=== PATIENT | female | born 1950 | race Caucasian/White ===

== ENCOUNTER 2018-09-02 10:32 | Outpatient (CLI) | payer BC, SELFPAY ==
--- NOTE | 2018-09-02 10:27 | DI.RAD_ITS ---
SYMPTOMS/DIAGNOSIS: EVAL RT WRIST PAIN RIGHT WRIST: The bony structures and joint spaces appear intact. There is no evidence of a fracture or dislocation.
== END 2018-09-02 10:52 ==
PROVIDERS: Visit Provider Student in an Organized Health Care Education/Training Program
DX: M25.531 Pain in right wrist (principal)
CPT/HCPCS: 73110

== ENCOUNTER 2018-09-15 11:50 | Day surgery (SDC) | payer BC, SELFPAY ==
--- NOTE | 2018-09-15 11:51 | W.PREOPHP ---
Documented by User: PALLAVI Katz 09/15/18 12:48 Date of service: 09/15/18 Assessment and Plan (1) Right carpal tunnel syndrome: Current visit: No Status: Acute (2) Cubital tunnel syndrome on right: Current visit: No Status: Acute Right ECTR with Right ulnar nerve decompression with possible transposition. Details of surgery were discussed with patient including risks and pertinent anatomy. All questions were answered. History of Present Illness Chief Complaint: Right hand pain and numbness Narrative: Anais is a 67 year old female who comes in today for a RIGHT ECTR and RIGHT ulnar nerve decompression at the elbow because of right hand pain and numbness. She also is experiencing weakness in the right hand. This is all aggravated by activities including driving, administering insulin, reading and especially at night. She did try nighttime bracing which did not improve her symptoms. She had EMG studies which revield moderate CTS on the right wrist as well as moderate ulnar endrapment at the elbow. Because she has failed conservative treatment, she elects to proceed with R ECTR and RIGHT ulnar nerve decompression with possible transposition. Pertinent Surgical Information Patient denies history of CVA, [place], angina, asthma, COPD, renal or liver disorders, hepatitis, bleeding disorders, immune or thyroid disorders. No complications from anesthesia. Review of Systems Constitutional Denies fever(s) ENT Denies dizziness and Denies sore throat Cardiovascular Denies chest pain, Denies palpitations and Denies dyspnea Respiratory Denies cough and Denies dyspnea Gastrointestinal Denies abdominal pain, Denies melena, Denies hematochezia, Denies diarrhea, Denies nausea and Denies vomiting Genitourinary Denies hematuria and Denies dysuria Neurologic Denies dizziness Endocrine Denies palpitations [facility] Medical History Allergic rhinitis (Acute) History of broken finger (Acute) Pain, joint, shoulder, right (Acute) Retinal hemorrhage, bilateral (Acute) Diabetes mellitus (Chronic) Gout (Chronic) High cholesterol (Chronic) Hypertension (Chronic) Surgical History Closed fracture of phalanx of left little finger (Acute) Social History Smoking/Tobacco Use Status: Former Tobacco Use Quit Date: 05/12/89 Tobacco: How many years used: 15 Alcohol Intake: current Alcohol Intake frequency: a few times a week Alcohol type: wine Drug use: Never Substance use type: does not use Details: alcohol: t-1, wine, one glass Do you feel safe at home: Yes Do you feel safe in your relationship?: Yes Meds Home Medications Medication Instructions Recorded Confirmed Type amiloride 5 mg PO DAILY 09/15/18 09/15/18 History atenolol 50 mg PO DAILY 09/15/18 09/15/18 History cetirizine [Zyrtec] 10 mg PO HS 09/15/18 09/15/18 History fenofibrate 54 mg PO HS 09/15/18 09/15/18 History insulin aspart U-100 [Novolog 0 unit SUBCUT QACBREAK 09/15/18 09/15/18 History Flexpen U-100 Insulin] insulin glargine [Lantus U-100 25 unit SUBCUT QHS 09/15/18 09/15/18 History Insulin] liraglutide [Victoza 3-Jame] 1.2 mg SUBCUT HS 09/15/18 09/15/18 History lisinopril 40 mg PO HS 09/15/18 09/15/18 History metformin 500 mg PO BID 09/15/18 09/15/18 History simvastatin 20 mg PO QHS 09/15/18 09/15/18 History sitagliptin [Januvia] 100 mg PO DAILY 09/15/18 09/15/18 History Allergies Allergy/AdvReac Type Severity Reaction Status Date / Time No Known Allergies Allergy Verified 09/15/18 12:15 Exam HENMI Head: normocephalic and atraumatic General nose exam: no nasal discharge Other: Eyes Conjunctivae: conjunctivae normal Sclera: sclerae normal Resp Effort & Inspection: normal respiratory effort Auscultation: clear to auscultation bilaterally and no wheezes Cardio Rate: regular rate Rhythm: regular rhythm Heart Sounds: S1 normal, S2 normal and no murmurs GI Palpation: soft, no hepatosplenomegaly and nontender Auscultation: normal bowel sounds Documented by User: Raj London MD 09/15/18 14:41 PFSH Medical History Allergic rhinitis (Acute) History of broken finger (Acute) Pain, joint, shoulder, right (Acute) Retinal hemorrhage, bilateral (Acute) Diabetes mellitus (Chronic) Gout (Chronic) High cholesterol (Chronic) Hypertension (Chronic) Surgical History Closed fracture of phalanx of left little finger (Acute) Social History Smoking/Tobacco Use Status: Former Tobacco Use Quit Date: 05/12/89 Tobacco: How many years used: 15 Alcohol Intake: current Alcohol Intake frequency: a few times a week Alcohol type: wine Drug use: Never Substance use type: does not use Details: alcohol: t-1, wine, one glass Do you feel safe at home: Yes Do you feel safe in your relationship?: Yes Meds Home Medications Medication Instructions Recorded Confirmed Type amiloride 5 mg PO DAILY 09/15/18 09/15/18 History atenolol 50 mg PO DAILY 09/15/18 09/15/18 History cetirizine [Zyrtec] 10 mg PO HS 09/15/18 09/15/18 History fenofibrate 54 mg PO HS 09/15/18 09/15/18 History insulin aspart U-100 [Novolog 0 unit SUBCUT QACBREAK 09/15/18 09/15/18 History Flexpen U-100 Insulin] insulin glargine [Lantus U-100 25 unit SUBCUT QHS 09/15/18 09/15/18 History Insulin] liraglutide [Victoza 3-Jame] 1.2 mg SUBCUT HS 09/15/18 09/15/18 History lisinopril 40 mg PO HS 09/15/18 09/15/18 History metformin 500 mg PO BID 09/15/18 09/15/18 History simvastatin 20 mg PO QHS 09/15/18 09/15/18 History sitagliptin [Januvia] 100 mg PO DAILY 09/15/18 09/15/18 History Allergies Allergy/AdvReac Type Severity Reaction Status Date / Time No Known Allergies Allergy Verified 09/15/18 12:15
--- NOTE | 2018-09-15 11:56 | HPE_ITS ---
Documented by User: PALLAVI Katz 09/15/18 12:48 Date of service: 09/15/18 Assessment and Plan (1) Right carpal tunnel syndrome: Current visit: No Status: Acute (2) Cubital tunnel syndrome on right: Current visit: No Status: Acute Right ECTR with Right ulnar nerve decompression with possible transposition. Details of surgery were discussed with patient including risks and pertinent anatomy. All questions were answered. History of Present Illness Chief Complaint: Right hand pain and numbness Narrative: Anais is a 67 year old female who comes in today for a RIGHT ECTR and RIGHT ulnar nerve decompression at the elbow because of right hand pain and numbness. She also is experiencing weakness in the right hand. This is all aggravated by activities including driving, administering insulin, reading and especially at night. She did try nighttime bracing which did not improve her symptoms. She had EMG studies which revield moderate CTS on the right wrist as well as moderate ulnar endrapment at the elbow. Because she has failed conservative treatment, she elects to proceed with R ECTR and RIGHT ulnar nerve decompression with possible transposition. Pertinent Surgical Information Patient denies history of CVA, [place], angina, asthma, COPD, renal or liver disorders, hepatitis, bleeding disorders, immune or thyroid disorders. No complications from anesthesia. Review of Systems Constitutional Denies fever(s) ENT Denies dizziness and Denies sore throat Cardiovascular Denies chest pain, Denies palpitations and Denies dyspnea Respiratory Denies cough and Denies dyspnea Gastrointestinal Denies abdominal pain, Denies melena, Denies hematochezia, Denies diarrhea, Denies nausea and Denies vomiting Genitourinary Denies hematuria and Denies dysuria Neurologic Denies dizziness Endocrine Denies palpitations [facility] Medical History Allergic rhinitis (Acute) History of broken finger (Acute) Pain, joint, shoulder, right (Acute) Retinal hemorrhage, bilateral (Acute) Diabetes mellitus (Chronic) Gout (Chronic) High cholesterol (Chronic) Hypertension (Chronic) Surgical History Closed fracture of phalanx of left little finger (Acute) Social History Smoking/Tobacco Use Status: Former Tobacco Use Quit Date: 05/12/89 Tobacco: How many years used: 15 Alcohol Intake: current Alcohol Intake frequency: a few times a week Alcohol type: wine Drug use: Never Substance use type: does not use Details: alcohol: t-1, wine, one glass Do you feel safe at home: Yes Do you feel safe in your relationship?: Yes Meds Home Medications Medication Instructions Recorded Confirmed Type amiloride 5 mg PO DAILY 09/15/18 09/15/18 History atenolol 50 mg PO DAILY 09/15/18 09/15/18 History cetirizine [Zyrtec] 10 mg PO HS 09/15/18 09/15/18 History fenofibrate 54 mg PO HS 09/15/18 09/15/18 History insulin aspart U-100 [Novolog 0 unit SUBCUT QACBREAK 09/15/18 09/15/18 History Flexpen U-100 Insulin] insulin glargine [Lantus U-100 25 unit SUBCUT QHS 09/15/18 09/15/18 History Insulin] liraglutide [Victoza 3-Jame] 1.2 mg SUBCUT HS 09/15/18 09/15/18 History lisinopril 40 mg PO HS 09/15/18 09/15/18 History metformin 500 mg PO BID 09/15/18 09/15/18 History simvastatin 20 mg PO QHS 09/15/18 09/15/18 History sitagliptin [Januvia] 100 mg PO DAILY 09/15/18 09/15/18 History Allergies Allergy/AdvReac Type Severity Reaction Status Date / Time No Known Allergies Allergy Verified 09/15/18 12:15 Exam HENTX Head: normocephalic and atraumatic General nose exam: no nasal discharge Other: Eyes Conjunctivae: conjunctivae normal Sclera: sclerae normal Resp Effort & Inspection: normal respiratory effort Auscultation: clear to auscultation bilaterally and no wheezes Cardio Rate: regular rate Rhythm: regular rhythm Heart Sounds: S1 normal, S2 normal and no murmurs GI Palpation: soft, no hepatosplenomegaly and nontender Auscultation: normal bowel sounds Documented by User: Raj London MD 09/15/18 14:41 PFSH Medical History Allergic rhinitis (Acute) History of broken finger (Acute) Pain, joint, shoulder, right (Acute) Retinal hemorrhage, bilateral (Acute) Diabetes mellitus (Chronic) Gout (Chronic) High cholesterol (Chronic) Hypertension (Chronic) Surgical History Closed fracture of phalanx of left little finger (Acute) Social History Smoking/Tobacco Use Status: Former Tobacco Use Quit Date: 05/12/89 Tobacco: How many years used: 15 Alcohol Intake: current Alcohol Intake frequency: a few times a week Alcohol type: wine Drug use: Never Substance use type: does not use Details: alcohol: t-1, wine, one glass Do you feel safe at home: Yes Do you feel safe in your relationship?: Yes Meds Home Medications Medication Instructions Recorded Confirmed Type amiloride 5 mg PO DAILY 09/15/18 09/15/18 History atenolol 50 mg PO DAILY 09/15/18 09/15/18 History cetirizine [Zyrtec] 10 mg PO HS 09/15/18 09/15/18 History fenofibrate 54 mg PO HS 09/15/18 09/15/18 History insulin aspart U-100 [Novolog 0 unit SUBCUT QACBREAK 09/15/18 09/15/18 History Flexpen U-100 Insulin] insulin glargine [Lantus U-100 25 unit SUBCUT QHS 09/15/18 09/15/18 History Insulin] liraglutide [Victoza 3-Jame] 1.2 mg SUBCUT HS 09/15/18 09/15/18 History lisinopril 40 mg PO HS 09/15/18 09/15/18 History metformin 500 mg PO BID 09/15/18 09/15/18 History simvastatin 20 mg PO QHS 09/15/18 09/15/18 History sitagliptin [Januvia] 100 mg PO DAILY 09/15/18 09/15/18 History Allergies Allergy/AdvReac Type Severity Reaction Status Date / Time No Known Allergies Allergy Verified 09/15/18 12:15
[2018-09-15 12:21] VITALS: BP 154/72; PULSE 61; RESP 16; TEMP 35.6; O2SAT 99
[2018-09-15] MEDS: Lactated Ringers 1,000 ML 80 ML IV (12:40)
[2018-09-15] MEDS: ceFAZolin 2 GM/50 ML BAG IVPB (13:32)
[2018-09-15] MEDS: Lidocaine 1% Multi-Dose 50 ML VIAL (13:39)
--- NOTE | 2018-09-15 14:43 | PDOC.DSDIS_ITS ---
Discharge Plan Disposition Patient Disposition: HOME Condition: Good Discharge Details Reason For Visit: R cubital and carpal tunnel Attending Provider: Raj London Primary Care Provider: Jamil Ball [place] Meds and New Rx's Prescriptions: New acetaminophen 500 mg tablet 500 mg PO Q6H PRN (Reason: pain) Qty: 60 RF: 3 hydrocodone-acetaminophen 5-325 mg tablet 1 tab PO Q4H PRN (Reason: pain) Qty: 14 RF: 0 ibuprofen 600 mg tablet 600 mg PO TID PRNQty: 90 RF: 3 Continued metformin 500 mg Tablet 500 mg PO BID RF: 0 Lantus U-100 Insulin 100 unit/mL Solution 25 unit SUBCUT QHS RF: 0 amiloride 5 mg Tablet 5 mg PO DAILY RF: 0 simvastatin 20 mg Tablet 20 mg PO QHS RF: 0 lisinopril 40 mg Tablet 40 mg PO HS RF: 0 atenolol 50 mg Tablet 50 mg PO DAILY RF: 0 Novolog Flexpen U-100 Insulin 100 unit/mL Insulin Pen SUBCUT QACBREAK RF: 0 Januvia 100 mg Tablet 100 mg PO DAILY RF: 0 fenofibrate 54 mg Tablet 54 mg PO HS RF: 0 Victoza 3-Jame 0.6 mg/0.1 mL (18 mg/3 mL) Pen Injector 1.2 mg SUBCUT HS RF: 0 Zyrtec 10 mg Capsule 10 mg PO HS RF: 0 Discharge Instructions Additional Instructions: Activity: You should stay in the sling for the first 1-2 weeks. You may come out of the sling for gentle motion and hygiene but should largely remain in the sling to allow the incision site to heal. Gentle motion of the elbow, hand, wrist, and fingers is okay and encouraged after the first few days, but no repetitive activites nor heavy lifting. You may apply ice. Medications: - You should take Tylenol and Ibuprofen around the clock. - You have been prescribed Hydrocodone for breakthrough pain. Dressings: - The initial surgical dressing should stay in place for 3 days. It may then be removed and kept clean and dry. You should cover with a light gauze dressing at the elbow and a bandaid at the wrist. - You may shower after 3 days and get the wound wet. Follow-up: 10 days Referrals: Raj London MD [ [facility] STAFF PHYSICIAN] - Equipment/Supplies: Sling Activity:: Elevate Remove Dressings/Wound Care:: 72 hours Shower/Bathe:: 72 hours Diet:: Carb Counting Discharge Orders Discharge Orders: Discharge Order (Routine); Ordered 09/15/18 Ordered By: Raj London DS: Diagnosis Discharge Diagnosis (1) Cubital tunnel syndrome on right: Status: Acute (2) Right carpal tunnel syndrome: Status: Acute
[2018-09-15 15:20] VITALS: BP 129/66; PULSE 51; RESP 16; TEMP 36.6; O2SAT 95
[2018-09-15] MEDS: Acetaminophen 325 MG TAB 650 MG PO (15:23)
--- NOTE | 2018-09-16 07:49 | ROE_ITS ---
Date of service: 09/15/18 Time of Service: 14:43 Operative Note DATE OF PROCEDURE: 09/15/18 PRE-OP DIAGNOSIS: Right Carpal Tunnel Syndrome and right cubital tunnel syndrome POST-OP DIAGNOSIS: same PROCEDURE: Right Endoscopic Carpal Tunnel Release and right cubital tunnel release with anterior subcutaneous ulnar nerve transposition SURGEON: Raj London ASSISTING SURGEON: Li Walker ANESTHESIA: MAC ESTIMATED BLOOD LOSS: 0 PATHOLOGY: none sent TOURNIQUET TIME: 40 COMPLICATIONS: None Patient was transported to: same day Patient's condition: stable Indications: I have seen Anais in clinic for symptoms of carpal and cubital tunnel syndrome. The numbness, tingling, and pain limited function. Clinical exam findings [with nerve conduction tests ]confirmed the diagnosis of both. Nonoperative measures such as bracing, time, activity modifications had been tried but disability and pain persisted. I discussed carpal tunnel and cubital tunnel release with the patient. I reviewed the risks of the procedure to include, but not limited to, bleeding, infection, pain, stiffness, incomplete release, damage to nerves or vessels, persistent numbness, recurrence, nerve subluxation. Despite these risks, the patient elected to proceed. Findings: There was tightened carpal tunnel. This was dilated and released successfully with the endoscopic with increased space within the tunnel. The antebrachial fascia was released proximally freeing the median nerve at the wrist. The ulnar nerve was identified at the level of the elbow and was noted to be tight through Almeida's fascia as well at the arcade of Catherine. After releasing the nerve was noted to purchase over the edge of the medial condyle and therefore it was transposed anteriorly. Procedure Description: Anais was greeted in the preoperative holding area where the correct side was identified and marked. The consent was reviewed with the patient and signed. The history and physical was updated. All questions were answered. Anais was taken back to the operating room. The patient was placed into the supine position on the operating room table with the right arm on an arm board. A nonsterile tourniquet was placed high onto the arm, into the axilla. All bony prominences were well padded. Prophylactic antibiotics in the form of cefazolin were administered. The right arm was then prepped with Chloraprep and draped in a standard fashion with stockinette and extremity drape. A timeout to confirm correct identity, side and site, procedure, allergies, anesthesia, and medical concerns was performed. The surgical site was marked in the volar wrist creases in line with the radial border of the fourth ray. This area was anesthetized with approximately 6cc of 1% Lidocaine. The limb was then exsanguinated with an Esmarch. The skin was incised with a 15 blade, approximately 1cm. The skin only was cut and the deeper tissue was dissected bluntly with a tenotomy scissor, avoiding passing nerve and venous structures. The fascia was penetrated and opened bluntly. A two-prong skin hook was placed under this proximal fascial edge. A series of hamate finders were used to identify and dilate the carpal tunnel. Synovial elevator was used to free synovial attachments to the underside of the transverse carpal ligament. My thumb was kept in the palm to ray the distal extent of the carpal tunnel and correctly position the hand. The [employer] endoscope was inserted without difficulty and without resistance. Excellent visualization showed horizontally running fibers of the transverse carpal ligament (TCL). The distal extent of the TCL was visualized and the end of the scope palpated with the thumb. The blade was elevated and withdrawn from distal to proximal. The TCL was split into two flaps. The endoscope was reinserted to confirm complete release and any remnant ligament was incised. The scope was withdrawn and the proximal aspect of the carpal tunnel was grossly inspected and appeared release with the median nerve visible. The antebrachial fascia at the level of the wrist was then freed from the overlying skin and then the underlying median nerve with blunt dissection. This was transected longitudinally for about 3cm proximal to the wrist incision. The wound was then irrigated with easy flow of irrigant distally and proximally. The incision was closed with a single 4-0 Nylon suture. The wound was dressed with Xeroform, Gauze, Kerlix. Attention was then turned to the cubital tunnel surgery. A curvilinear incision was made just posterior to the medial condyle. The medial epicondyle was marked on the skin. The skin was incised sharply. Deep dissection was carried out using tenotomy scissors and blunt dissection. There was one small branching nerve of the medial antebrachial cutaneous nerve which was protected. The ulnar nerve was identified just proximal to the medial condyle. It was unroofed and was noted to be tight through the cubital tunnel and Almeida's fascia. This was released all the way into the flexor carpi ulnaris muscle and the first branch of the ulnar nerve. The overlying fascia was released. Proximal release was performed and was noted to be relatively noncompressed except for the arcade of Catherine. The medial intermuscular septum was not very taut nor tight against the nerve but the arcade of Catherine prevented any movement of the nerve. This was released and the nerve is noted to be free. The elbow was then taken through range of motion where the nerve purchase on the edge of the medial epicondyle. Therefore, I decided to transpose the nerve. With a vessel loop around the ulnar nerve all adhesions were removed from the nerve. It was able to easily move anterior to the medial condyle. There is no point compression either proximal or distal. A small flap of the flexor pronator mass fascia was elevated and sutured to the deep tissues underlying the previously marked site of the medial epicondyle with a #2-0 Vicryl. The nerve is noted to be freely within this pocket anterior to the elbow. The wound was then irrigated. The deep tissues were closed with a 3-0 Vicryl. The skin was closed with a 4-0 nylon. Xeroform, gauze, and Kerlix was applied to the wound. The tourniquet was deflated with the initial dressing and held with some pressure. Blood flow returned easily to all digits with capillary refill less than 2 seconds. Sarbjit wraps were applied to both surgical sites and the patient was placed to a slingRoderick Manzo tolerated the procedure well and was returned to the Same Day Surgery area in a stable condition suffering no known complication.
== END 2018-09-15 15:56 | disposition home or self-care (01) ==
PROVIDERS: PCP Neuromusculoskeletal Medicine & OMM; Visit Provider Student in an Organized Health Care Education/Training Program
PROC: (CPT 64718; principal; 2018-09-15 13:00)
PROC: 01N54ZZ Release Median Nerve, Percutaneous Endoscopic Approach (ICD-10-PCS; CPT 29848; 2018-09-15 13:00)
DX: G56.01 Carpal tunnel syndrome, right upper limb (principal); G56.21 Lesion of ulnar nerve, right upper limb
CPT/HCPCS: 64718; 29848; NC; J0690; J2250; J3010; L3650

== ENCOUNTER 2022-11-27 10:40 | Day surgery (SDC) | payer BC, SELFPAY ==
[2022-11-27] VITALS (7 sets, daily range): BP systolic 124–189; BP diastolic 48–102; PULSE 46–57; RESP 16–23; TEMP 35.8–36.6; O2SAT 95–99; BMI 26.2
--- NOTE | 2022-11-27 07:31 | W.PM.DSUDISC ---
Date of service: 11/27/22 Time of Service: 07:34 Discharge Plan Disposition Condition: Good Condition: Good Discharge Details Reason For Visit: Left carpal and cubital tunnel syndromes Attending Provider: Raj London Primary Care Provider: Jamil Ball [place] Meds and New Rx's Prescriptions: New acetaminophen 500 mg tablet 500 mg PO Q6H PRN (Reason: pain) Qty: 60 2RF hydrocodone-acetaminophen 5-325 mg tablet 1 tab PO Q6H PRN (Reason: severe pain) Qty: 6 0RF Rx Instructions: Take one tablet up to every 6 hours as needed for severe postoperative pain ibuprofen 600 mg tablet 600 mg PO TID PRN (Reason: pain) Qty: 60 0RF Continued insulin lispro [Humalog KwikPen Insulin] 100 unit/mL insulin pen 1 sliding scale dose subcut USEASDIRECTD amiloride 5 mg Tablet 5 mg PO DAILY simvastatin 20 mg Tablet 20 mg PO QHS lisinopril 40 mg Tablet 40 mg PO HS atenolol 50 mg Tablet 50 mg PO DAILY Januvia 100 mg Tablet 100 mg PO DAILY fenofibrate 54 mg Tablet 54 mg PO HS Zyrtec 10 mg Capsule 10 mg PO HS Discontinued acetaminophen 500 mg tablet 500 mg PO Q6H PRN (Reason: pain) Qty: 60 3RF ibuprofen 600 mg tablet 600 mg PO TID PRNQty: 90 3RF Discharge Instructions Additional Instructions: Cubital Tunnel Decompression Discharge Instructions Activity: You should stay in the sling for the first 2 weeks. You may come out of the sling for gentle motion and hygiene but should largely remain in the sling to allow the incision site to heal. Gentle motion of the elbow, hand, wrist, and fingers is okay and encouraged after the first few days, but no repetitive activities nor heavy lifting. You may apply ice. Medications: - You should take Tylenol and Ibuprofen around the clock. - You have been prescribed Hydrocodone for breakthrough pain. Dressings: - The initial surgical dressing should stay in place for 3 days. It may then be removed and kept clean and dry. You should cover with a light gauze dressing. - You may shower after 3 days and get the wound wet. Follow-up: 10 days Stand Alone Forms: Surya Gramajo Tunnel Release Referrals: Raj London MD [ [facility] STAFF PHYSICIAN] - Equipment/Supplies: Sling Activity:: Activity as Tolerated Remove Dressings/Wound Care:: 72 hours Shower/Bathe:: 72 hours Diet:: As Tolerated Discharge Orders Discharge Orders: Discharge Order (Routine); Ordered 11/27/22 Ordered By: Li Walker DS: Diagnosis Discharge Diagnosis (1) Left carpal tunnel syndrome: Status: Acute (2) Cubital tunnel syndrome on left: Status: Acute
--- NOTE | 2022-11-27 09:46 | W.ANESPRE ---
General Info Date of Service Date Performed: 11/27/22 Height: 5 ft 3.5 in Weight: 68.039 kg Body Mass Index (BMI): 26.2 Surgical Procedure: Operation Date: 11/27/22 14:25 Proposed Procedure Side Surgeon p Wrist ECTR Left Raj London MD s Cubital Tunnel Decompression Left Raj London MD Meds Allergies and Home Medications Allergies Allergy/AdvReac Type Severity Reaction Status Date / Time No Known Allergies Allergy Verified 11/26/22 11:12 Home Medication Medication Instructions Recorded amiloride 5 mg tablet 5 mg PO DAILY 09/15/18 atenolol 50 mg tablet 50 mg PO DAILY 09/15/18 cetirizine 10 mg capsule (Zyrtec) 10 mg PO HS 09/15/18 fenofibrate 54 mg tablet 54 mg PO HS 09/15/18 lisinopril 40 mg tablet 40 mg PO HS 09/15/18 simvastatin 20 mg tablet 20 mg PO QHS 09/15/18 sitagliptin phosphate 100 mg 100 mg PO DAILY 09/15/18 tablet (Januvia) insulin lispro 100 unit/mL 1 sliding scale dose subcut 03/13/22 subcutaneous pen (Humalog KwikPen USEASDIRECTD (U-100) Insulin) acetaminophen 500 mg tablet 500 mg PO Q6H PRN pain #60 tabs 11/27/22 hydrocodone 5 mg-acetaminophen 325 1 tab PO Q6H PRN severe pain #6 11/27/22 mg tablet tabs ibuprofen 600 mg tablet 600 mg PO TID PRN pain #60 tabs 11/27/22 Current Visit Medications: Current Medications Generic Name Dose Route Start Last Admin Trade Name Freq PRN Reason Stop Dose Admin Acetaminophen 650 mg 11/27/22 07:30 Acetaminophen 325 Mg Tab PO 12/27/22 07:29 Q4H PRN PRN Hydrocodone Bitart/Acetaminophen 0 tab 11/27/22 07:30 Hydrocodone 5/Acetaminophen 325 Tab PO 12/27/22 07:29 Q3H PRN PRN Pain Ringer's Solution 1,000 mls @ 80 mls/hr 11/27/22 06:00 IV 12/26/22 23:59 INFUSION ANAIS Cefazolin Sodium/Dextrose 2 gm in 50 mls @ 100 mls/hr 11/27/22 06:00 Ancef Duplex IVPB 12/26/22 23:59 PREOP ANAIS IV Miscellaneous Supplies 1 each 11/27/22 06:00 Iv Access IV 12/26/22 23:59 DIRECTED ANAIS Sodium Chloride 0 ml 11/27/22 06:00 Normal Saline Flush 10 Ml Syr IV 12/26/22 23:59 PRN PRN Sodium Chloride 0 ml 11/27/22 06:00 Normal Saline 10 Ml Vial IJ 12/26/22 23:59 DIRECTED PRN Sterile Water 0 ml 11/27/22 06:00 Water,Injection,Sterile 10 Ml Vial IJ 12/26/22 23:59 DIRECTED PRN PFSH Active Problems Active Problems: Problem Status Onset Code Cubital tunnel syndrome on left G56.22 Left carpal tunnel syndrome G56.02 Right carpal tunnel syndrome G56.01 Cubital tunnel syndrome on right G56.21 Medical History Medical History Allergic rhinitis Diabetes mellitus Gout High cholesterol History of broken finger surgical repair per MD referral note. Pt. reports L thumb and pinky Hypertension Pain, joint, shoulder, right Retinal hemorrhage, bilateral pt denies Surgical History Surgical History Closed fracture of phalanx of left little finger s/p closed reduction percutaneous pinning around 2000 Tobacco Smoking/Tobacco Use Status: Former Tobacco Use Alcohol Alcohol Intake: current Alcohol intake frequency: a few times a week Alcohol type: wine Substance Use Substance use: Never Substance use type: does not use Vital Signs and Lab Results Vital Signs Most Recent Vital Signs in EMR: Temp Pulse Resp BP Pulse Ox 36.3 C L 52 L 16 189/62 H 99 11/27/22 11:00 11/27/22 11:00 11/27/22 11:00 11/27/22 11:00 11/27/22 11:00 Vital Signs Comment Vital Signs Comment:: Temp Pulse Resp BP Pulse Ox 36.3 C L 52 L 16 189/62 H 99 11/27/22 11:00 11/27/22 11:00 11/27/22 11:00 11/27/22 11:00 11/27/22 11:00 Lab Results Blood Type / Crossmatch: No Data to Display Complete Blood Count: No Data to Display Complete Metabolic Panel: No Data to Display Liver Function Panel: No Data to Display Coagulation Panel: No Data to Display Cardiac Panel: No Data to Display Arterial Blood Gas: No Data to Display Venous Blood Gas: No Data to Display Pancreas Panel: No Data to Display Thyroid Panel: No Data to Display Infectious Disease: No Data to Display Blood Cultures: No Data to Display Toxicology Panel: No Data to Display Anesthesia Assessment and Plan Anesthesia History Personal History: No History of Anesthesia Complications Family History: No Family History of Anesthesia Complications Exercise Tolerance Exercise Tolerance: Metabolic Equivalents>4 Pertinent Negatives Pertinent Negatives: No Symptoms of GERD, No Major Cardiovascular Symptoms or Complaints, No Major Pulmonary Symptoms or Complaints and No History of CVA/TIA Cardiac & Pulmonary Exam Cardiac Exam: Normal S1/S2 Heart Sounds Pulmonary Exam: Clear Bilateral Breath Sounds Implantable Cardiac Device Does patient have a Pacemaker or an ICD?: No Airway Exam Known Difficult Airway: No Mallampati Class: 2 Mouth Opening: Normal (> 3cm) Thyromental Distance: Greater than 3 cm Neck Range of Motion: Full ROM Neck Circumference: Normal Teeth Condition: Normal Dentition and Generalized Poor Dentition ASA Classification ASA Score: ASA 2 Emergency Case?: No NPO Status NPO Status: NPO Clears >2 hours, Solids >8 hours Anesthesia Plan Resuscitation Status: Full Code Anesthesia Technique: General Anesthesia Airway Planned: LMA Monitors Used: Standard Monitors Preoperative Comments:: 72 yo female for ECTR/cubital tunnel. Sig PMHx: DM (lispro, januvia), HTN (atenolol, amiloride), gout, former smoker, occ EtOH. Previous Anes: - ECTR/cubital tunnel, fent, midaz, prop, natural airway, no issues.
--- NOTE | 2022-11-27 11:14 | HPE_ITS ---
Date of service: 11/27/22 Time of Service: 11:30 Assessment and Plan Assessment and plan (1) Cubital tunnel syndrome on left: Status: Acute (2) Left carpal tunnel syndrome: Status: Acute Assessment and plan: Plan: She was screened by the nursing staff to have no symptoms or red flags for possible Covid-19 infection. Educated patient on surgery covering surgical technique, recovery process, benefits and risks including but not limited to risk of infection, blood clot, damage to soft tissue/blood vessels/nerves in detail. After discussion patient gives verbal understanding of risks and elects to proceed with scheduling surgery. Patient had opportunity to have questions answered to their satisfaction. They will contact office if issues arise. Patient will continue to be scheduled for left ECTR and cubital tunnel decompression with anterior transposition with Dr. London later today I interviewed and examined the patient with Li Walker PA-C. I agree with the documentation as above. The assessment and plan were formulated with my direct involvement. Anais is a 72-year-old who has numbness and tingling of the left arm and hand. She had similar findings in the right side which is now status post endoscopic carpal tunnel release and cubital tunnel decompression with anterior transposition, which is doing very well. She has some findings in the left side and therefore I offered cubital tunnel decompression along with carpal tunnel release. I once again reviewed the technical features of the case. I discussed the risk to include bleeding, infection, pain, stiffness, damage to nerves and vessels, persistent numbness, nerve subluxation, scarring or inflammation around the nerve, persistent symptoms, need for repeat procedures. Despite these risk, she elects to proceed. Raj London MD FAAOS FAAHKS History of Present Illness Narrative: Ms. Robbins is a 72-year-old [id number] female with PMH of type 1 diabetes who presents to hospital for scheduled left ECTR and cubital tunnel decompre ssion with anterior transposition. Patient has been experiencing left upper extremity paresthesias affecting all fingers for over a year. For more full details please review patient's last orthopedic note on 10/14/2022. Based on patient's continued symptoms she was offered and elected proceed with surgical intervention. Denies any significant medical changes since last visit. Denies any significant cardiac or pulmonary history. Denies any recent COVID-19 infection. Review of Systems Cardiovascular Cardiovascular: Denies chest pain and Denies dyspnea Respiratory Respiratory: Denies dyspnea PFSH All Active Problems Cubital tunnel syndrome on left (Acute) Left carpal tunnel syndrome (Acute) Right carpal tunnel syndrome (Acute) s/p R ECTR 09/15/18 Cubital tunnel syndrome on right (Acute) s/p R ulnar nerve decompression and anterior subcutaneous transposition 09/15/18 Medical History Allergic rhinitis Diabetes mellitus Gout High cholesterol History of broken finger surgical repair per MD referral note. Pt. reports L thumb and pinky Hypertension Pain, joint, shoulder, right Retinal hemorrhage, bilateral pt denies Surgical History Closed fracture of phalanx of left little finger s/p closed reduction percutaneous pinning around 2000 Social History Smoking/Tobacco Use Status: Former Tobacco Use Quit Date: 05/12/89 Tobacco: How many years used: 15 Smoking risk assessment performed?: Yes Alcohol Intake: current Alcohol Intake frequency: a few times a week Alcohol type: wine Drug use: Never Substance use type: does not use Housing: house Do you feel safe at home: Yes Do you feel safe in your relationship?: Yes Meds Allergies and Home Medications Allergies Allergy/AdvReac Type Severity Reaction Status Date / Time No Known Allergies Allergy Verified 11/26/22 11:12 Home Medications Medication Instructions Recorded Confirmed Type amiloride 5 mg tablet 5 mg PO DAILY 09/15/18 11/26/22 History atenolol 50 mg tablet 50 mg PO DAILY 09/15/18 11/26/22 History cetirizine 10 mg capsule (Zyrtec) 10 mg PO HS 09/15/18 11/26/22 History fenofibrate 54 mg tablet 54 mg PO HS 09/15/18 11/26/22 History lisinopril 40 mg tablet 40 mg PO HS 09/15/18 11/26/22 History simvastatin 20 mg tablet 20 mg PO QHS 09/15/18 11/26/22 History sitagliptin phosphate 100 mg 100 mg PO DAILY 09/15/18 11/26/22 History tablet (Januvia) insulin lispro 100 unit/mL 1 sliding scale dose subcut 03/13/22 11/26/22 History subcutaneous pen (Humalog KwikPen USEASDIRECTD (U-100) Insulin) acetaminophen 500 mg tablet 500 mg PO Q6H PRN pain #60 tabs 11/27/22 Rx hydrocodone 5 mg-acetaminophen 325 1 tab PO Q6H PRN severe pain #6 11/27/22 Rx mg tablet tabs ibuprofen 600 mg tablet 600 mg PO TID PRN pain #60 tabs 11/27/22 Rx Exam Const General: cooperative and no acute distress Resp Effort & Inspection: normal respiratory effort and able to speak in complete sentences Auscultation: clear to auscultation bilaterally, no rales, no rhonchi and no wheezes Cardio Heart Sounds: S1 normal, S2 normal and no murmurs Time Spent Time spent with Patient: <40 minutes Time was spent: preparing to see the patient(eg.review tests), ordering medications,tests, procedures, indepentently interpreting results and care coordination
[2022-11-27] MEDS: Lactated Ringers 1,000 ML 80 ML IV (11:18)
[2022-11-27] MEDS: ceFAZolin 2 GM/50 ML BAG IVPB (11:53)
[2022-11-27] MEDS: Lidocaine 1% Multi-Dose W/EPI 1/100,000 50 ML VIAL (12:25)
--- NOTE | 2022-11-27 13:56 | W.ANESPOSTOP ---
Postoperative Evaluation Date, Time and Location Date Performed: 11/27/22 Time Performed: 13:56 Patient Location: Day Surgery Unit Vital Signs Most Recent Imported Vital Signs: Most Recent Vital Signs Temp Pulse Resp BP Pulse Ox 36.5 C 51 L 23 124/102 H 96 11/27/22 13:20 11/27/22 13:20 11/27/22 13:20 11/27/22 13:20 11/27/22 13:20 Pain Score Most Recent Pain Score: Most Recent Pain Score Pain Level 0 11/27/22 13:20 Assessment Mental Status: Awake (Alert & Oriented to Patient Baseline) Airway and Respiratory Function: Patent airway with normal (patient baseline) respiratory exam Cardiovascular Function: Hemodynamically Stable Hydration Status: Adequately Hydrated Nausea & Vomiting: No Nausea or Vomiting Pain: Pt. Denies Any Pain Peripheral Nerve Block: Patient did not receive a nerve block
--- NOTE | 2022-11-27 17:31 | W.PM.OP ---
Date of service: 11/27/22 Time of Service: 12:45 Operative Note Operative Note DATE OF PROCEDURE: 11/27/22 PRE-OP DIAGNOSIS: Left Carpal Tunnel and Left Cubital Tunnel Syndrome with nerve instability POST-OP DIAGNOSIS: same PROCEDURE: Left endoscopic Carpal Tunnel Release and left cubital Tunnel Decompression with Anterior Subcutaneous Transposition SURGEON: Raj London BILINGUAL CUSTOMER SERVICE: Li Walker ANESTHESIA TYPE: General LMA/ETT Refer to Anesthesia Record ESTIMATED BLOOD LOSS: 0 PATHOLOGY: none sent TOURNIQUET TIME: 33 COMPLICATIONS: None Patient was transported to: PACU Patient's condition: stable Indications: Anais is a 72-year-old active female who has had symptoms of carpal and cubital tunnel syndrome. Nonoperative treatment options had been trialed. Nerve conduction studies identified the carpal and cubital tunnel as the point of compression. Given failure of nonoperative treatments and persistent symptoms, I offered operative intervention. She also had unstable ulnar nerve. She had a previous carpal tunnel cubital tunnel in the right side with excellent results. I reviewed the technical details of a carpal tunnel release and cubital tunnel decompression with possible anterior subcutaneous transposition. I reviewed the risk of the procedure to include bleeding, infection, pain, stiffness, nerve instability, damage to superficial nerves, persistent symptoms, and incomplete release. Despite these risks, the patient elected to proceed. Findings: The carpal tunnel was release with a standard endoscopic technique without difficulty and excellent visualization. There was a completely unstable ulnar nerve which was seen perched over the prominence of the medial epicondyle with changes seen to the epineurium. The ulnar nerve was release from the first motor branch distally through the [place] proximally and transposed anteriorly. Procedure Description: Anais was greeted in the preoperative holding area where the correct side was identified and marked. The consent was reviewed with the patient and signed. The history and physical was updated. All questions were answered. She was taken back to the operating room. The patient was placed into the supine position on the operating room table with the left arm on an arm board. A nonsterile tourniquet was placed high onto the arm, into the axilla. All bony prominences were well padded. Prophylactic antibiotics in the form of Cefazolin were administered. The right arm was then prepped with Chloraprep and draped in a standard fashion with stockinette and extremity drape. A timeout to confirm correct identity, side and site, procedure, allergies, anesthesia, and medical concerns was performed. The surgical site was marked in the volar wrist creases in line with the radial border of the fourth ray. This area was anesthetized with approximately 6cc of 1% Lidocaine with Epinephrine. The surgical site about the medial elbow was drawn on the skin just posterior to the medial epicondyle borders. The planned surgical field was anesthetized with 1% Lidocaine with Epinephrine. The limb was then exsanguinated with an Esmarch. Starting with the carpal tunnel, the skin was incised with a 15 blade, approximately 1cm. The skin only was cut and the deeper tissue was dissected bluntly with a tenotomy scissor, avoiding passing nerve and venous structures. The fascia was penetrated and opened bluntly. A two-prong skin hook was placed under this proximal fascial edge. A series of hamate finders were used to identify and dilate the carpal tunnel. Synovial elevator was used to free synovial attachments to the underside of the transverse carpal ligament. My thumb was kept in the palm to ray the distal extent of the carpal tunnel and correctly position the hand. The [employer]aire endoscope was inserted without difficulty and without resistance. Excellent visualization showed horizontally running fibers of the transverse carpal ligament (TCL). The distal extent of the TCL was visualized and the end of the scope palpated with the thumb. The blade was elevated and withdrawn from distal to proximal. The TCL was split into two flaps. The endoscope was reinserted to confirm complete release and any remnant ligament was incised. The scope was withdrawn and the proximal aspect of the carpal tunnel was grossly inspected and appeared release with the median nerve visible. The antebrachial fascia at the level of the wrist was then freed from the overlying skin and then the underlying median nerve with blunt dissection. This was transected longitudinally for about 3cm proximal to the wrist incision. The wound was then irrigated with easy flow of irrigant distally and proximally. The incision was closed with a single 4-0 Nylon suture. . Attention was then turned to the cubital tunnel release. The skin of the medial elbow was incised only with the elbow in some flexion and on a bump. The deep tissue and subcutaneous fat was dissected with a tenotomy scissors trying to protect any branches of the medial antebrachial cutaneous nerve. Any branches that were identified were retracted out of the way. The ulnar nerve was palpated and identified. A small window into the cubital tunnel, sheath overlying the nerve, was created and the nerve was able to be palpated with the [place]. A Metzenbaum scissor was then used to open up the sheath starting with Almeida's ligament. I then worked distal over the ulnar nerve releasing any constraints against the nerve all the way to the fascia of the FCU muscle belly. This muscle belly was bluntly all the way down to the first motor branch of the ulnar nerve and the overlying fascia was incised. Likewise starting there at the medial epicondyle, I proceeded to work proximally to release any constraints over the ulnar nerve. This was taken all the way to the arcade of [place]. The medial intermuscular septum was also palpated and any sharp edges against the ulnar nerve were resected and released. After fully releasing the nerve it was inspected visually. I was also able to palpate the nerve fully and reach one finger up into the proximal and distal aspects to make sure there were no constraints against the nerve. A freer elevator was also used to slide easily against the ulnar nerve without any points of constriction. The first motor branch was quite proximal and where it left the ulnar nerve. This was dissected out as well to fully release this branch from any constraints before transposing. A portion of the intermuscular septum was also resected so as not to impinge on the nerve with the transposition. Once the nerve was fully freed it was moved anteriorly without any sites of compression. I then created a fascial flap from the medial condyle. This fibrofatty flap was anchored to the far most medial aspect of the medial epicondyle. There was a prominence of the medial epicondyle which was adjacent to the nerve somewhat proximally and this was resected and smoothed with a rongeur. There was some fat placed overlying this. I then sewed the fascial?fat flap to the dermis of the medial elbow overlying the medial epicondyle. The nerve rested easily in the anterior surface of the elbow without any constraints or points of constriction. The tourniquet was then deflated. Any areas of bleeding were cauterized with bipolar electrocautery. The wound was thoroughly irrigated. The deep tissue was closed with a 3-0 Vicryl. The skin was closed with a 4-0 nylon. The wounds were dressed with Xeroform, 4 x 4's, ABD, Kerlix and an Sarbjit wrap. Anais was placed into a sling. She was transferred back to the PACU in a stable condition.
== END 2022-11-27 14:37 | disposition home or self-care (01) ==
PROVIDERS: PCP Neuromusculoskeletal Medicine & OMM; Visit Provider Student in an Organized Health Care Education/Training Program
PROC: 01N54ZZ Release Median Nerve, Percutaneous Endoscopic Approach (ICD-10-PCS; CPT 29848; principal; 2022-11-27 14:15)
PROC: (CPT 64718; 2022-11-27 14:15)
DX: G56.22 Lesion of ulnar nerve, left upper limb (principal); G56.02 Carpal tunnel syndrome, left upper limb
CPT/HCPCS: 64718; 29848; J0131; J0690; J1100; J2001; J2405; J2704